=== PATIENT | female | born 1995 ===

== ENCOUNTER 2018-08-30 10:46 | Emergency (ER) | payer BC, OTHER ==
[2018-08-30] MEDS ORDERED: Albuterol-Ipratrop 3 mg / 0.5 (3 ml) UD ONE (11:54)
[2018-08-30] MEDS ORDERED: Albuterol-Ipratrop 3 mg / 0.5 (3 ml) UD INH STA (11:57)
--- NOTE | 2018-08-30 13:54 | RAD ---
Date of service: 08/30/2018 HISTORY: fever cough COMPARISON: No prior. TECHNIQUE: Chest PA and lateral FINDINGS: LUNGS: No active pulmonary disease. PLEURA: No significant pleural effusion identified. No pneumothorax apparent. CARDIOVASCULAR: No aortic atherosclerotic calcification present. Normal cardiac size. No pulmonary vascular congestion. OSSEOUS STRUCTURES: No significant abnormalities. VISUALIZED UPPER ABDOMEN: Normal. OTHER FINDINGS: None. IMPRESSION: No active disease.
--- NOTE | 2018-08-30 14:02 | ED PDOC ---
HPI: General Adult Time Seen by Provider: 08/30/18 11:29 Chief Complaint (Nursing): Flu-like Symptoms Chief Complaint (Provider): Flu-like Symptoms History Per: Patient History/Exam Limitations: no limitations Onset/Duration Of Symptoms: Days (4) Current Symptoms Are (Timing): Still Present Additional Complaint(s): 23 year old female presents to the ED for an evaluation of cough, congestion, body ache and fever onset for 4 days. Patient also reports of intermittent wheezing for which she used Albuterol. The cough has continued for one week. She went to Urgent Care clinic yesterday and was diagnosed with flu and without any medications provided. Otherwise, she denies chest pain, abdominal pain or weakness. PMD: no family provider Past Medical History Reviewed: Historical Data, Nursing Documentation, Vital Signs Vital Signs: Last Vital Signs Temp 97.6 F 08/30/18 10:48 Pulse 83 08/30/18 10:48 Resp 17 08/30/18 10:48 BP 126/79 08/30/18 10:48 Pulse Ox 100 08/30/18 10:48 - Medical History PMH: Asthma - Family History Family History: States: Diabetes - Social History Current smoker - smoking cessation education provided: No Alcohol: None Drugs: Denies - Immunization History Hx Tetanus Toxoid Vaccination: No Hx Influenza Vaccination: No - Home Medications Home Medications: Ambulatory Orders Medication Instructions Recorded Acetaminophen [Tylenol] 3 tab PO Q6 PRN #30 tab 06/04/15 Ranitidine HCl [Zantac 150] 1 tab PO BID #20 tab 06/04/15 Famotidine [Pepcid] 20 mg PO BID #10 tab 09/01/15 Ondansetron ODT [Zofran ODT] 4 mg PO Q8 PRN #10 odt 09/01/15 Albuterol HFA [Ventolin HFA 90 1 puff IH Q4 PRN #1 inh 08/30/18 mcg/actuation (8 g)] Albuterol/Ipratropium [Duoneb 3 3 ml IH Q6 #15 neb 08/30/18 MG/3 Ml-0.5 MG/3 Ml 3 Ml] Oseltamivir Cap [Tamiflu] 75 mg PO BID #10 cap 08/30/18 Promethazine/Codeine 5 ml PO Q4 PRN #100 ml 08/30/18 [Phenergan/Codeine Oral Syrup] - Allergies Allergies/Adverse Reactions: Allergies Allergy/AdvReac Type Severity Reaction Status Date / Time corn Allergy ANAPHYLAXIS Verified 09/01/15 01:03 prednisone Allergy SWELLING Verified 09/01/15 01:03 Review of Systems ROS Statement: Except As Marked, All Systems Reviewed And Found Negative Constitutional: Positive for: Fever, Other (body ache) ENT: Positive for: Nose Congestion Cardiovascular: Negative for: Chest Pain Respiratory: Positive for: Cough, Wheezing Gastrointestinal: Negative for: Abdominal Pain Neurological: Negative for: Weakness Physical Exam - Reviewed Nursing Documentation Reviewed: Yes Vital Signs Reviewed: Yes - Physical Exam Appears: Positive for: Well, Non-toxic, No Acute Distress Head Exam: Positive for: ATRAUMATIC, NORMAL INSPECTION, NORMOCEPHALIC Skin: Positive for: Normal Color, Warm, Dry. Negative for: Rash Eye Exam: Positive for: EOMI, Normal appearance, PERRL ENT: Positive for: Normal ENT Inspection Neck: Positive for: Normal, Painless ROM, Supple. Negative for: Decreased ROM Cardiovascular/Chest: Positive for: Regular Rate, Rhythm. Negative for: Murmur Respiratory: Positive for: Normal Breath Sounds. Negative for: Decreased Breath Sounds, Respiratory Distress Gastrointestinal/Abdominal: Positive for: Normal Exam, Soft. Negative for: Tenderness Back: Positive for: Normal Inspection. Negative for: L CVA Tenderness, R CVA Tenderness Extremity: Positive for: Normal ROM. Negative for: Tenderness, Pedal Edema, Deformity Neurologic/Psych: Positive for: Alert, Oriented (x3) - Laboratory Results Urine dip results: Negative for: Ketones - ECG O2 Sat by Pulse Oximetry: 100 (RA) Pulse Ox Interpretation: Normal - Progress Re-evaluation Time: 14:57 Condition: Re-examined, Improved Medical Decision Making Medical Decision Making: Time: 1157 Impression: Influenza and asthma exacerbation r/o pneumonia Plan: test Urine dipstick Chest two views [RAD] Duoneb 3mg/0.5mg (3ml) UD Peak flow pre/post TX Reevaluation CXR presents no abnormalities, as read by Dr. Reyes Urine dip is negative, clean and no ketone Vitals are normal, patient is not dehydrated Patient has been eating in the ER 1350 CXR FINDINGS: LUNGS: No active pulmonary disease. PLEURA: No significant pleural effusion identified. No pneumothorax apparent. CARDIOVASCULAR: No aortic atherosclerotic calcification present. Normal cardiac size. No pulmonary vascular congestion. OSSEOUS STRUCTURES: No significant abnormalities. VISUALIZED UPPER ABDOMEN: Normal. OTHER FINDINGS: None. IMPRESSION: No active disease. Upon provider reevaluation patient is feeling better, is medically stable, and requires no further treatment in the ED at this time. Patient will be discharged home. Counseling was provided and all questions were answered regarding diagnosis and need for follow up with [facility]. There is agreement to discharge plan. Return if symptoms persist or worsen. Scribe Attestation: Documented by Natan Barton, acting as a scribe for Tobi Reeys MD. Provider Scribe Attestation: All medical record entries made by the Scribe were at my direction and personally dictated by me. I have reviewed the chart and agree that the record accurately reflects my personal performance of the history, physical exam, medical decision making, and the department course for this patient. I have also personally directed, reviewed, and agree with the discharge instructions and disposition. Disposition - Clinical Impression Clinical Impression: Influenza, Asthma - Patient ED Disposition Is Patient to be Admitted: No Doctor Will See Patient In The: Office Counseled Patient/Family Regarding: Studies Performed, Diagnosis, Need For Followup - Disposition Referrals: [facility] [Outside] Disposition: Routine/Home Disposition Time: 14:58 Condition: GOOD Additional Instructions: DEYSI MCGILL, thank you for letting us take care of you today. Your provider was Tobi Reyes MD and you were treated for POSS ASTHMA. The emergency medical care you received today was directed at your acute symptoms. If you were prescribed any medication, please fill it and take as directed. It may take several days for your symptoms to resolve. Return to the Emergency Department if your symptoms worsen, do not improve, or if you have any other problems. Please contact your doctor or call one of the physicians/clinics you have been referred to that are listed on the Patient Visit Information form that is included in your discharge packet. Bring any paperwork you were given at discharge with you along with any medications you are taking to your follow up visit. Our treatment cannot replace ongoing medical care by a primary care provider outside of the emergency department. Thank you for allowing the [facility] team to be part of your care today. If you had an X-Ray or CT scan: A Radiologist will review the ED reading if any change in treatment is needed we will contact you. If you had a blood, urine, or wound culture: It will take several days for the results, if any change in treatment is needed we will contact you. If you had an STI test: It will take 48 hours for the results. Please call after 1 week if you have not heard back. Prescriptions: Albuterol HFA [Ventolin HFA 90 mcg/actuation (8 g)] 1 puff IH Q4 PRN #1 inh PRN Reason: Wheezing Albuterol/Ipratropium [Duoneb 3 MG/3 Ml-0.5 MG/3 Ml 3 Ml] 3 ml IH Q6 #15 neb Oseltamivir Cap [Tamiflu] 75 mg PO BID #10 cap Promethazine/Codeine [Phenergan/Codeine Oral Syrup] 5 ml PO Q4 PRN #100 ml PRN Reason: Cough Instructions: Asthma in Adults, Flu, Adult (DC)
[2018-08-30 15:32] VITALS: BP 104/56; PULSE 90; RESP 16; TEMP 99.3
[2018-08-30 15:47] VITALS: O2SAT 100
== END 2018-08-30 15:10 | disposition home or self-care (01) ==
LOC: H.ER 10:46
DX: J11.1 Influenza due to unidentified influenza virus with other respiratory manifestations (principal); J45.909 Unspecified asthma, uncomplicated